=== PATIENT | female | born 1960 | race Caucasian/White ===

== ENCOUNTER → 2017-01-06 | Outpatient (CLI) | payer BC ==
[~2017-01-06] MED LIST: ASPI-611 PO; CLON1TAB PO; CYCL-208 PO; FISH1CAP51 PO; HYDR-310 PO; LORA-326 PO; MELO-31 PO; METH10TA76 PO; METO25TA41 PO; MULT-806 PO; NITR0.4T38 SL
== END ==
LOC: WC.BC 16:13
DX: Z12.31 Encounter for screening mammogram for malignant neoplasm of breast (principal)
CPT/HCPCS: 77063; G0202